=== PATIENT | male | born 1930 | race Caucasian/White ===

== ENCOUNTER 2017-10-24 00:58 | Emergency (ER) | payer OTHER ==
[~2017-10-24] VITALS: Ht 175.3 cm; Wt 83.9 kg
[2017-10-24 01:22] VITALS: BP 144/70
== END 2017-10-24 02:11 | disposition home or self-care (01) ==
LOC: ER 01:05
DX: S51.811A Laceration without foreign body of right forearm, initial encounter (principal); W17.89XA Other fall from one level to another, initial encounter; Y93.89 Activity, other specified; Y92.090 Kitchen in other non-institutional residence as the place of occurrence of the external cause; Y99.8 Other external cause status
CPT/HCPCS: 12002

== ENCOUNTER → 2019-07-19 | Emergency (ER) | payer OTHER ==
[~2019-07-19] VITALS: Ht 172.7 cm; Wt 72.6 kg
[2019-07-19 17:28] LABS: Basophils # (auto) 0.1 10 ^3/uL (0-0.2); Basophils % (auto) 1.3 % (0.0-2.0); Eosinophils # (auto) 0.1 10 ^3/uL (0-0.8); Eosinophils % (auto) 1.8 % (0.0-7.0); Hematocrit 34.5 % (41.0-53.0); Hemoglobin 11.8 g/dL (13.5-17.5); Lymphocytes % (auto) 18.6 % (10.0-50.0); Mean Corpuscular Hemoglobin 33.8 pg (28.0-32.0); Mean Corpuscular Hgb Conc. 34.3 g/dL (32.0-36.0); Mean Corpuscular Volume 98.6 fL (80.0-100.0); Monocytes # (auto) 0.5 10 ^3/uL (0-1.3); Monocytes % (auto) 9.5 % (0.0-12.0); Neutrophils # (auto) 3.7 10 ^3/uL (1.6-8.6); Neutrophils % (auto) 68.8 % (37.0-80.0); Platelet Count (auto) 299 10^3/uL (140-450); Red Cell Distribution Width 13.3 % (11.8-14.3); White Blood Cell 5.4 10^3/uL (4.4-10.8)
[2019-07-19 17:44] VITALS: BP 167/75
[2019-07-19 17:53] LABS: Albumin 2.6 g/dL (3.4-5.0); Anion Gap 7 (5-15); Calcium 8.3 mg/dL (8.5-10.1); Carbon Dioxide 23 mmol/L (21-32); Chloride 98 mmol/L (98-107); Glucose 95 mg/dL (74-106); Potassium 3.8 mmol/L (3.5-5.1); Sodium 128 mmol/L (136-145)
[2019-07-19 17:57] LABS: Alanine Aminotransferase 14 U/L (16-61); Aspartate Aminotransferase 18 U/L (15-37); BUN/Creatinine Ratio 7.1; Bilirubin, Total 0.4 mg/dL (0.2-1.0); Blood Urea Nitrogen 9 mg/dL (7-18); GFR African American 69 mL/min; GFR Non-African American 57 mL/min; Total Protein 7.6 g/dL (6.4-8.2)
[2019-07-19 18:01] LABS: Alkaline Phosphatase 93 U/L (45-117)
== END | disposition home or self-care (01) ==
LOC: ER 16:09
DX: R06.02 Shortness of breath (principal); F41.9 Anxiety disorder, unspecified; D64.9 Anemia, unspecified
CPT/HCPCS: 36415; 71045; 80053; 83880; 84484; 85025; 93005